=== PATIENT | female | born 1945 | race Hispanic/Latino ===

== ENCOUNTER 2017-05-21 13:10 | Emergency (ER) | payer OTHER ==
[2017-05-21 13:12] VITALS: BMI 31.9
[2017-05-21 13:21] VITALS: BP 147/69; PULSE 78; RESP 18; TEMP 97; O2SAT 99
[2017-05-21 14:21] LABS: VENOUS BLOOD GAS BASE EXCESS 0.2 mmol/L (0.0-2.0); VENOUS BLOOD GAS PCO2 51 mmHg (40-60); VENOUS BLOOD GAS PO2 16 mm/Hg (30-55); VENOUS BLOOD PH 7.33 (7.32-7.43)
--- NOTE | 2017-05-21 14:28 | ED PDOC ---
HPI: General Adult Time Seen by Provider: 05/21/17 14:11 Chief Complaint (Nursing): Medical Clearance Chief Complaint (Provider): CO exposure History Per: Patient History/Exam Limitations: no limitations Onset/Duration Of Symptoms: Days (x1) Additional Complaint(s): Jumana Blanco is a 71 y/o female who presents to the ER for evaluation of carbon monoxide exposure, discovered today 1 hour prior to arrival. Patient was located on the 2nd floor. She denies having any symptoms. PMD: Provider TBD Past Medical History Reviewed: Historical Data, Nursing Documentation, Vital Signs Vital Signs: Last Vital Signs Temp 97.0 F L 05/21/17 13:17 Pulse 78 05/21/17 13:17 Resp 18 05/21/17 13:17 BP 147/69 05/21/17 13:17 Pulse Ox 99 05/21/17 14:53 - Medical History PMH: CHF, HTN, Hypercholesterolemia Denies: Chronic Kidney Disease - Surgical History Surgical History: Cholecystectomy, Endoscopy - Family History Family History: States: Unknown Family Hx - Home Medications Home Medications: Ambulatory Orders Medication Instructions Recorded Clopidogrel [Plavix] 75 mg PO DAILY 04/25/15 Metformin Hydrochloride/Maida 50 mg PO BID 04/25/15 [Janumet 500 mg-50 mg] Metoprolol Succinate [Toprol XL] 100 mg PO DAILY 04/25/15 RX: Aspirin [Aspirin Chewable] 81 mg PO DAILY 04/25/15 Rosuvastatin Calcium [Crestor] 40 mg PO DAILY 04/25/15 - Allergies Allergies/Adverse Reactions: Allergies Allergy/AdvReac Type Severity Reaction Status Date / Time No Known Allergies Allergy Verified 06/06/15 09:00 Review of Systems ROS Statement: Except As Marked, All Systems Reviewed And Found Negative Respiratory: Negative for: Shortness of Breath Gastrointestinal: Negative for: Nausea Physical Exam - Reviewed Nursing Documentation Reviewed: Yes Vital Signs Reviewed: Yes - Physical Exam Appears: Positive for: Well, Non-toxic, No Acute Distress Head Exam: Positive for: ATRAUMATIC, NORMAL INSPECTION, NORMOCEPHALIC Skin: Positive for: Normal Color, Warm, Dry Eye Exam: Positive for: EOMI, Normal appearance, PERRL ENT: Positive for: Normal ENT Inspection Neck: Positive for: Normal, Painless ROM Cardiovascular/Chest: Positive for: Regular Rate, Rhythm. Negative for: Murmur Respiratory: Positive for: Normal Breath Sounds Gastrointestinal/Abdominal: Positive for: Normal Exam, Bowel Sounds, Soft. Negative for: Tenderness Back: Positive for: Normal Inspection Extremity: Positive for: Normal ROM Neurologic/Psych: Positive for: Alert, Oriented - ECG O2 Sat by Pulse Oximetry: 99 (RA) Pulse Ox Interpretation: Normal - Progress ED Course And Treament: vbg CO 0.6 Patient feels well Received 100% nonrebreather O2 high flow in ED for 30 min Medical Decision Making Medical Decision Making: CO was wnl in triage. Pt requesting VBG to confirm. Time: 14:12 Initial Plan: --VBG Scribe Attestation: Documented by Emily Shirley, acting as a scribe for Virgie Garcia PA-C Provider Scribe Attestation: All medical record entries made by the Scribe were at my direction and personally dictated by me. I have reviewed the chart and agree that the record accurately reflects my personal performance of the history, physical exam, medical decision making, and the department course for this patient. I have also personally directed, reviewed, and agree with the discharge instructions and disposition. Disposition - Clinical Impression Clinical Impression: Carbon monoxide exposure - Disposition Disposition: Routine/Home Disposition Time: 15:10 Condition: FAIR Instructions: Carbon Monoxide Poisoning (ED) Forms: [employer] ([place])
== END 2017-05-21 15:09 | disposition home or self-care (01) ==
LOC: H.ER 13:10
DX: T58.91XA Toxic effect of carbon monoxide from unspecified source, accidental (unintentional), initial encounter (principal); Y99.0 Civilian activity done for income or pay; E78.00 Pure hypercholesterolemia, unspecified; I11.0 Hypertensive heart disease with heart failure; I50.9 Heart failure, unspecified; Z79.82 Long term (current) use of aspirin